=== PATIENT | male | born 1990 | race Caucasian/White ===

== ENCOUNTER 2019-01-15 10:35 | Outpatient (REF) | payer MEDICAID, SELFPAY ==
[2019-01-15 13:26] LABS: ALT 37 U/L (12-78); AST 25 U/L (15-37); Albumin 4.4 g/dL (3.4-5.0); Alkaline Phosphatase 82 U/L (46-116); BUN 12 mg/dL (7-18); Bilirubin, Total 0.3 mg/dL (0.2-1.0); CREATININE 1.02 mg/dL (0.70-1.30); Calcium 9.5 mg/dL (8.5-10.1); Chloride 104 mmol/L (98-107); Cholesterol 234 mg/dL (50-200); Glucose 97 mg/dL (70-100); HDL Cholesterol 41 mg/dL (40-60); LDL CHOLESTEROL 167 mg/dL (<100); Potassium 4.3 mmol/L (3.5-5.1); Sodium 142 mmol/L (136-145); Total Protein 7.7 g/dL (6.4-8.2); Triglyceride 107 mg/dL (30-150)
== END 2019-01-15 10:55 ==
LOC: LBN 10:35
PROVIDERS: PCP Family Medicine; Visit Provider Family Medicine
DX: Z13.220 Encounter for screening for lipoid disorders (principal)
CPT/HCPCS: 80053; 80061; 83721

== ENCOUNTER 2020-01-01 08:14 | Outpatient (CLI) | payer MEDICAID, SELFPAY ==
[2020-01-02 09:34] LABS: HIV-1/2 Ag & Ab Screen Negative (Negative)
[2020-01-02 09:40] LABS: Hepatitis C Ab w Rflx HCV PCR Negative (Negative)
[2020-01-02 10:17] LABS: Syphilis Serology (RPR) Negative (Negative)
[2020-01-02 10:23] LABS: Hepatitis B Surface Ag Negative (Negative)
[2020-01-02 14:55] LABS: Chlamydia Result Negative (Negative); GC Result Negative (Negative)
== END 2020-01-01 08:34 ==
PROVIDERS: PCP Family Medicine; Visit Provider Nurse Practitioner Family
DX: Z11.3 Encounter for screening for infections with a predominantly sexual mode of transmission (principal); Z11.4 Encounter for screening for human immunodeficiency virus [HIV]; Z11.59 Encounter for screening for other viral diseases
CPT/HCPCS: 36415; 86803; 87340; 87389; 87491; 87591; 86592

== ENCOUNTER 2020-01-12 16:21 | Emergency (ER) | payer MEDICAID, SELFPAY ==
[2020-01-12 16:26] VITALS: BP 134/80; PULSE 71; RESP 18; TEMP 37.6; O2SAT 97
[2020-01-12] MEDS: Ibuprofen 600 MG TAB PO (16:45)
--- NOTE | 2020-01-12 17:14 | W.ED.GENAD ---
Discharge Plan Disposition Patient Disposition: HOME Discharge Details Chief Complaint: Laceration Clinical Impression: Traumatic amputation of fingertip Primary Care Provider: John Arndt ED Provider: Arnie Huynh Home Meds and New Rx's Prescriptions: Continued methadone 10 mg/5 mL solution 86 mg PO DAILY RF: 0 Discharge Instructions Instructions: Finger Amputation (ED) Additional Instructions: Please keep dressing intact for the next 3 days. Change dressing daily thereafter. Be sure to use a sterile dressing. Monitor for signs of infection including increased redness, warmth, swelling, discharge. Please take ibuprofen over the counter. Take 600mg by mouth every 6 hours as needed for pain. Return to the ER for any worsening or new concerning symptoms. Referrals: John Arndt DO [Primary Care Provider] - Medical Decision Making 29-year-old male here with amputation of the distal left third digit. Wound is not amenable to primary closure. Wound was anesthetized with topical LMX and irrigated with copious sterile saline. A turnicot was applied for hemostasis. Xeroform gauze was applied and sterile dressing applied. Turnicot removed after 30 minutes. Hemostasis achieved. Patient's last tetanus was 08/29/2000. Tetanus immunization booster was administered. Usual and customary discharge instructions were provided. HPI General Mode of arrival: ambulatory. Date/Time Provider Initiated Documentation: 01/12/20 16:29. Limitations to Documentation: no limitations. Information obtained by: patient. HPI Narrative: 29-year-old male presents with chief complaint of finger injury. Patient notes that he sliced the tip of his left third digit yesterday evening while cutting an onion. A dressing was placed on the finger which controlled bleeding. He took down today and noted bleeding was persisting. Laceration was severe. Unsure of tetanus status. Related Data Home Medications Medication Instructions Recorded Confirmed methadone 10 mg/5 mL oral solution 86 mg PO DAILY ml 01/15/19 01/12/20 Allergies Allergy/AdvReac Type Severity Reaction Status Date / Time clarithromycin [From Biaxin] Allergy Unknown Unverified 01/12/20 16:28 General Stated Complaint: Laceration YAMILETH: 3 Review of Systems Musculoskeletal Musculoskeletal: Denies numbness Integumentary/Breasts Skin/Breast: Reports as per HPI Neurologic Neurologic: Denies numbness [facility] Surgical History Tonsillectomy Family History Father Diabetes Substance abuse Hypertension Mother No problems noted. Maternal Grandmother Stroke Paternal Grandfather Diabetes Arthritis Hypertension Social History Smoking/Tobacco Use Status: Current every day Tobacco Type: cigarettes Quit status: not considering quitting Second Hand Exposure: Yes Alcohol Intake: current Alcohol Intake frequency: a few times a month Drug use: Current Sobriety Substance use type: former substance user Adopted: No Foster care: Yes Household members: family Housing: apartment What type of physical activity do you participate in: walking, bicycling and other Details: KAYAK Frequency: 3-4 times per week Seatbelt use: sometimes Helmet use: Yes Drive 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 Working smoke detector in home: Yes Fire extinguisher in home: Yes Carbon monox detector in home: Yes Firearms in home: No Do you feel safe at home: Yes Do you feel safe in your relationship?: Yes Victim of physical abuse: No Victim of emotional abuse: No Victim of sexual abuse: No Exam Const General: cooperative and healthy appearing Skin Trauma: laceration (distal left 3rd digit amputation of tip of finger, oozing blood) Extrem Left upper extremity: hand Details: neuromotor exam normal, neurosensory exam normal and tendon exam normal Course Vital Signs Vital signs: Vital Signs Temperature 37.6 C H 01/12/20 16:26 Pulse 71 01/12/20 16:26 Respiratory Rate 18 01/12/20 16:26 Blood Pressure 134/80 01/12/20 16:26 Pulse Oximetry 97 01/12/20 16:26 Temperature 37.6 C H 01/12/20 16:26 Pulse 71 01/12/20 16:26 Respiratory Rate 18 01/12/20 16:26 Respiratory Effort Non-Labored 01/12/20 16:31 Blood Pressure 134/80 01/12/20 16:26 Blood Pressure Position Sitting 01/12/20 16:26 Pulse Oximetry 97 01/12/20 16:26 Oxygen Delivery Method Room Air 01/12/20 16:26 Oxygen Flow Rate 0 01/12/20 16:26 Pain Level 6 01/12/20 16:45
[2020-01-12 18:16] VITALS: BP 134/80; PULSE 71; RESP 18; TEMP 37.6; O2SAT 97
== END 2020-01-12 17:37 | disposition home or self-care (01) ==
PROVIDERS: Emergency Provider Student in an Organized Health Care Education/Training Program; PCP Family Medicine
DX: S61.213A Laceration without foreign body of left middle finger without damage to nail, initial encounter (principal); W26.0XXA Contact with knife, initial encounter; Y93.G1 Activity, food preparation and clean up
CPT/HCPCS: 90471; 99284; 99283

== ENCOUNTER 2020-06-05 08:12 | Outpatient (CLI) | payer MEDICAID, SELFPAY ==
[2020-06-07 04:47] LABS: SARS-CoV-2 RNA Undetected (Undetected); SARS-CoV-2 Specimen Source Nasopharynx
== END 2020-06-05 08:32 ==
PROVIDERS: PCP Family Medicine; Visit Provider Family Medicine
DX: J06.9 Acute upper respiratory infection, unspecified (principal)
CPT/HCPCS: U0003

== ENCOUNTER 2021-06-08 11:28 | Emergency (ER) | payer MEDICAID, SELFPAY ==
--- NOTE | 2021-06-08 11:29 | ED.GENADUL_ITS ---
Discharge Plan Disposition Patient Disposition: HOME Condition: Stable Discharge Details Clinical Impression: Fracture of nasal bone, Laceration of eyebrow, right, Contusion of right orbit Primary Care Provider: John Arntd ED Provider: Mattie Garcia Home Meds and New Rx's Prescriptions: New amoxicillin-pot clavulanate [Augmentin] 875-125 mg tablet 1 tab PO BID 10 Days Qty: 20 RF: 0 Continued methadone 10 mg/5 mL solution 40 mg PO DAILY RF: 0 Discharge Instructions Instructions: Head Injury (ED), Contusion in Adults (ED), Skin Adhesive Care (ED), Facial Laceration (ED) Additional Instructions: Keep wound clean and dry. Do not soak the wounds or cover wound with a dressing. Let the Dermabond glue fall off naturally. Alternate tylenol and motrin as needed and directed for pain. A prescription for an antibiotic was sent electronically to your pharmacy. Start this antibiotic today and take as directed until finished. You are being given this antibiotic for your nasal bone fractures to prevent a sinus infection. Call [facility] and the ear nose and throat doctor today to schedule a follow-up appointment for reevaluation in the next week. Return immediately to the emergency department if you develop any worsening or new concerning symptoms. Referrals: [facility], [facility] [Outside] Florin Montelongo MD [ [facility] STAFF PHYSICIAN] - Discharge Data Discharge Date/Time-TO BE ENTERED AT DEPARTURE: 06/08/21 13:47 Discharge Physician: Mattie Garcia Medical Decision Making 31-year-old male presents with right eye injury after slipping and falling and hitting his right eye on a metal handle of a dresser yesterday. Admit to revision but denies any LOC or vomiting. OD 20/30, 0S 20/20, OU 20/20. He has a 1 cm x 2 mm crusted erosion to the right medial eyebrow are consistent with closed laceration. There is right orbital tenderness and ecchymosis in the infraorbital region. EOMI intact. PERRLA. No evidence of entrapment. No midline cervical spinal tenderness. Neurovascularly intact. Will place let overlying the wound and remove the crusted erosion to close the wound with Dermabond. Will refer for CT head and facial bones. CT facial bones notes nondisplaced nasal bone fractures but no orbital fracture. Remainder of CT imaging unremarkable with no evidence of entrapment or intracranial injury. Patient's right eyebrow laceration irrigated and erosion removed and edges closely approximated and closed with Dermabond. Will place patient on Augmentin for nasal bone fractures and place on care management list for follow-up with ENT and [facility]. Usual and customary return precautions given prior to discharge. Imaging Data Radiologic Study: Radiologist's impression: CT HEAD FACIAL WO CLINICAL HISTORY: hit R side of face/R orbit on metal handle. TECHNIQUE: Imaging Protocol: Axial computed tomography images with coronal and sagittal reformatted images were created and reviewed COMPARISON: No exams were available for comparison FINDINGS: Ventricles and Extra axial spaces: Normal in size and morphology for the patient's age. Hemorrhage: None. Cerebral parenchyma: Normal. Midline shift: None. Brainstem/Cerebellum: Normal. Calvarium: Normal. Visualized Paranasal sinuses/Mastoids: Clear. Soft tissue swelling over frontal reason and nose. Nondisplaced nasal fractures. No additional facial fractures. Globes intact. No orbital fracture. Poor dentition. Multiple periapical lucencies. IMPRESSION: Normal CT of the head. Nondisplaced nasal fractures. Surrounding soft tissue swelling. HPI General Mode of arrival: ambulatory . Date/Time Provider Initiated Documentation: 06/08/21 11:29 . Limitations to Documentation: no limitations . Information obtained by: patient . HPI Narrative: Patient is a 31-year-old male presents with right eye injury after slip and fall hitting his right eye on a metal tile setter handle yesterday at 3pm. Patient states he slipped on water striking the right orbital area of his eye on the handle. He sustained a laceration to his right medial eyebrow. He states it bled for several hours but he was able to stop the bleeding and covered it with a Band-Aid. Patient states today he is complaining of fuzzy vision and flashing light in her right eye. Patient states his tetanus is up-to-date. Patient admits to mild 3/10 facial pain and headache. He denies neck pain or extremity weakness. Related Data Home Medications Medication Instructions Recorded Confirmed methadone 10 mg/5 mL oral solution 40 mg PO DAILY ml 01/12/21 06/08/21 amoxicillin-pot clavulanate 1 tab PO BID 10 Days #20 tab 06/08/21 [Augmentin] Previous Rx's Medication Instructions Recorded amoxicillin-pot clavulanate 1 tab PO BID 10 Days #20 tab 06/08/21 [Augmentin] Allergies Allergy/AdvReac Type Severity Reaction Status Date / Time clarithromycin [From Biaxin] Allergy Unknown Unverified 06/08/21 11:34 General YAMILETH: 3 Review of Systems All systems reviewed & are unremarkable except as noted in HPI and below Constitutional Constitutional: Reports as per HPI, Denies chills and Denies fever(s) Eyes Eyes: Reports blurry vision and Reports eye pain (R eye area) ENT Ears, Nose, Mouth, and Throat: Denies dizziness, Denies sore throat and Denies throat swelling Cardiovascular Cardiovascular: Denies chest pain and Denies dyspnea Respiratory Respiratory: Denies cough and Denies dyspnea Gastrointestinal Gastrointestinal: Denies abdominal pain, Denies diarrhea and Denies vomiting Genitourinary Genitourinary: Denies hematuria and Denies dysuria Musculoskeletal Musculoskeletal: Denies back pain and Denies numbness Integumentary/Breasts Skin/Breast: Denies lesions and Denies rash Neurologic Neurologic: Denies dizziness, Denies localized weakness and Denies numbness Allergic/Immunologic Allergic/Immunologic: Denies throat swelling [facility] Medical History (Updated 06/08/21 @ 13:27 by Mattie Garcia DO) Depression Opiate dependence BAART since 07/22/15 Tobacco dependence Traumatic amputation of fingertip Surgical History Tonsillectomy Family History Father Diabetes Substance abuse Hypertension Mother No problems noted. Maternal Grandmother Stroke Paternal Grandfather Diabetes Arthritis Hypertension Social History Smoking/Tobacco Use Status: Current every day Tobacco Type: cigarettes Quit status: not considering quitting Second Hand Exposure: Yes Smoking risk assessment performed?: Yes Alcohol Intake: current Alcohol Intake frequency: a few times a month Drug use: Current Sobriety Substance use type: former substance user Adopted: No Foster care: Yes Household members: family Housing: apartment What type of physical activity do you participate in: walking, bicycling and other Details: KAYAK Frequency: 3-4 times per week Seatbelt use: sometimes Helmet use: Yes Drive intox 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 Working smoke detector in home: Yes Fire extinguisher in home: Yes Carbon monox detector in home: Yes Firearms in home: No Do you feel safe at home: Yes Do you feel safe in your relationship?: Yes Victim of physical abuse: No Victim of emotional abuse: No Victim of sexual abuse: No Exam Const General: cooperative, healthy appearing and no acute distress HENHI Head: normal to inspection Mouth: oral mucosae normal Eyes General: appearance normal, both eyes and all related structures Periorbital: periorbital findings abnormal right periorbital swelling, perio rbital tenderness and periorbital ecchymosis; no erythema and no crepitus Eyelids: eyelids normal Conjunctivae: conjunctivae normal Sclera: sclerae normal Cornea: corneas normal Pupils: PERRL EOM: EOM intact bilaterally Eyes/upper lids images: 1. 1cm x 2mm crusted erosion c/w dried blood overlying laceration. No active bleeding. 2. Ecchymoses, no hematoma. Neck Neck: normal visual inspection Resp Effort & Inspection: normal respiratory effort and able to speak in complete sentences Cardio Rate: regular rate Back/Spine/Pelvis Cervical Spine: No cervical spinal tenderness Skin General skin exam: no rashes or lesions noted Neuro General: patient alert, patient awake and patient oriented x3 Cranial Nerves: CN's II-XI intact bilaterally Motor: muscle tone normal throughout and strength 5/5 throughout Extrem General: normal to inspection and full ROM Psych Appearance: grossly normal Affect: normal affect Procedures Laceration Laceration 1: Site: face Side (If applicable): right Size (cm): 1 Description: linear Depth: simple, single layer Local Anesthetic: other anesthetic (topical anesthetic) Pre-repair: wound explored Skin layer closed with: other (dermabond)
[2021-06-08 11:32] VITALS: BP 136/91; PULSE 70; RESP 17; TEMP 36.7; O2SAT 99
--- NOTE | 2021-06-08 11:45 | DI.CT_ITS ---
Exam(s) CT HEAD FACIAL WO EXAM: CT HEAD FACIAL WO CLINICAL HISTORY: hit R side of face/R orbit on metal handle. TECHNIQUE: Imaging Protocol: Axial computed tomography images with coronal and sagittal reformatted images were created and reviewed COMPARISON: No exams were available for comparison FINDINGS: Ventricles and Extra axial spaces: Normal in size and morphology for the patient's age. Hemorrhage: None. Cerebral parenchyma: Normal. Midline shift: None. Brainstem/Cerebellum: Normal. Calvarium: Normal. Visualized Paranasal sinuses/Mastoids: Clear. Soft tissue swelling over frontal reason and nose. Nondisplaced nasal fractures. No additional faci al fractures. Globes intact. No orbital fracture. Poor dentition. Multiple periapical lucencies. IMPRESSION: Normal CT of the head. Nondisplaced nasal fractures. Surrounding soft tissue swelling. RADIATION DOSE DELIVERED: 1,697.92mGy.cm Total DLP DATA REPOSITORY: All CT scans at this facility are submitted to the National Radiology Data Registry (NRDR) Dose Index Registry (DIR) with the [employer] (ACR). RADIATION OPTIMIZATION: All CT scans at this facility use at least one of these dose optimization te chniques: automated exposure control; mA and/or kV adjustment per patient size (includes targeted exa ms where dose is matched to clinical indication); or iterative reconstruction.
[2021-06-08] MEDS: Lidocaine/Epinephri/Tetracaine Topical Gel 3 ML TP (12:01)
--- NOTE | 2021-06-08 17:06 | NUR.NOTE ---
referral to [facility]
--- NOTE | 2021-06-08 17:07 | NUR.NOTE ---
referral to[facility] ENT:
== END 2021-06-08 13:47 | disposition home or self-care (01) ==
PROVIDERS: Emergency Provider Physician Assistant; PCP Family Medicine
DX: S02.2XXA Fracture of nasal bones, initial encounter for closed fracture (principal); S01.111A Laceration without foreign body of right eyelid and periocular area, initial encounter; S05.11XA Contusion of eyeball and orbital tissues, right eye, initial encounter; W01.190A Fall on same level from slipping, tripping and stumbling with subsequent striking against furniture, initial encounter
CPT/HCPCS: 12011; 99284; 70450; 70486

== ENCOUNTER 2021-08-24 08:31 | Outpatient (REF) | payer MEDICAID, SELFPAY | END 2021-08-24 08:32 | disposition home or self-care (01) | LOC: RT 08:31 | PROVIDERS: PCP Family Medicine; Visit Provider Family Medicine | DX: Z79.899 Other long term (current) drug therapy (principal) | CPT/HCPCS: 93005; 93010 ==

== ENCOUNTER 2022-02-11 10:25 | Outpatient (REF) | payer MEDICAID, SELFPAY ==
[2022-02-13 13:16] LABS: Chlamydia Result Negative (Negative); GC Result Negative (Negative)
== END 2022-02-11 10:26 | disposition home or self-care (01) ==
LOC: LBN 10:25
PROVIDERS: PCP Family Medicine; Visit Provider Family Medicine
DX: Z11.3 Encounter for screening for infections with a predominantly sexual mode of transmission (principal)
CPT/HCPCS: 87491; 87591

== ENCOUNTER 2022-02-14 02:58 | Outpatient (CLI) | payer MEDICAID, SELFPAY ==
[2022-02-15 10:36] LABS: HIV-1/2 Ag & Ab Screen Negative (Negative)
[2022-02-15 10:43] LABS: Syphilis Serology (RPR) Negative (Negative)
[2022-02-15 12:15] LABS: HBs Antibody, Qual Positive (See Note); HBs Antibody, Quant 892.6 mIU/mL (See Note); Hepatitis B Core Antibody Negative (Negative); Hepatitis B surface Ag Negative (Negative); Hepatitis C Ab w Rflx HCV PCR Reactive (Negative)
[2022-02-16 14:54] LABS: HCV RNA Qualitative Undetected (Undetected)
== END 2022-02-14 02:59 | disposition home or self-care (01) ==
LOC: LBO 02:59
PROVIDERS: PCP Family Medicine; Referring Provider Family Medicine
DX: Z11.3 Encounter for screening for infections with a predominantly sexual mode of transmission (principal); Z11.4 Encounter for screening for human immunodeficiency virus [HIV]; Z11.59 Encounter for screening for other viral diseases
CPT/HCPCS: 36415; 86704; 86706; 86803; 87340; 87389; 87522; 86592

== ENCOUNTER 2023-01-11 07:31 | Emergency (ER) | payer MEDICAID, SELFPAY ==
[2023-01-11 07:32] VITALS: BP 141/95; PULSE 68; RESP 16; TEMP 36.6; O2SAT 99
--- NOTE | 2023-01-11 07:42 | W.ED.GENAD ---
Discharge Plan Disposition Patient Disposition: Home Condition: Stable Discharge Details Clinical Impression: Pain, dental Primary Care Provider: John Arndt ED Provider: Rubén Preciado Home Meds and New Rx's Prescriptions: New amoxicillin-pot clavulanate 875-125 mg tablet 1 tab PO BID Qty: 14 0RF No Action methadone 10 mg/5 mL solution 140 mg PO DAILY Rx Instructions: 01/12/21 Currently receives 105 mg of Liquid Methadone.BAART cgc 07/16/21 Dose changed to 60 mgs liquid daily. mk Discharge Instructions Instructions: Dental Abscess (ED) Additional Instructions: you can take ibuprofen and tylenol, follow dosing instrucions on packaging follow up as soon as possible with your dentist if you feel more ill, have severe worsening pain or difficulty swallowing liquids return to the emergency department Medical Decision Making 32 yo male who is on methadone comes in with cc of 2 days of left upper tooth pain. He denies fevers, chills, dyspnea, difficulty swallowing. HE arrives stable speaking clearly in no distress. HE appears well systemically. He localizes the pain to the left upper incisor which is eroded and has mild swelling of the gum above it. No visible abscess, no significant facial swelling, normal posterior pharynx, midline uvula, no submandibular swelling, no pain over the hyoid, no restricted neck movements. Swallowing normally without difficulty. Suspect dental abscess, no drainable abscess on bedside exam. No finings to suggest ludwigs or more serious pathology such as retropharyngeal abscess. Will initiate augmentin and have him f/u with his dentist. He requested to have several doses for at home due to lack of funds and states he will be able to get a prescription tomorrow so was given 2 tabs to go as well of augmentin. Return precautions given Differential Diagnosis Differential Diagnosis: pulpitis, caries, dental abscess HPI General Mode of arrival: ambulatory. Date/Time Provider Initiated Documentation: 01/11/23 07:32. Limitations to Documentation: no limitations. Information obtained by: patient. History of Present Illness 32 year old M presents to the emergency department with the chief complaint of dental pain, described as moderate, Quality is described as aching, Patient started experiencing this day(s) (2) and it has been constant. No relieving factors improve symptom(s), No exacerbating factors reported . Patient notes no other symptoms.; denies fever/chills and shortness of breath. Patient did receive the following treatments prior to arrival, none Related Data Home Medications Medication Instructions Recorded Confirmed methadone 10 mg/5 mL oral solution 140 mg PO DAILY 02/11/22 01/11/23 amoxicillin 875 mg-potassium 1 tab PO BID #14 tabs 01/11/23 clavulanate 125 mg tablet Previous Rx's Medication Instructions Recorded amoxicillin 875 mg-potassium 1 tab PO BID #14 tabs 01/11/23 clavulanate 125 mg tablet Allergies Allergy/AdvReac Type Severity Reaction Status Date / Time clarithromycin [From Biaxin] Allergy Severe Other (See Verified 01/11/23 07:37 Comment) General Stated Complaint: DentalOral YAMILETH: 4 Review of Systems All systems reviewed & are unremarkable except as noted in HPI and below Constitutional Constitutional: Denies chills, Denies fever(s) and Denies weakness ENT Ears, Nose, Mouth, and Throat: Denies change in voice Cardiovascular Cardiovascular: Denies chest pain and Denies dyspnea Respiratory Respiratory: Denies cough and Denies dyspnea Gastrointestinal Gastrointestinal: Denies abdominal pain, Denies nausea and Denies vomiting Integumentary/Breasts Skin/Breast: Denies rash Neurologic Neurologic: Denies weakness PFSH All Active Problems (Updated 01/11/23 @ 07:42 by Rubén Preciado MD) Pain, dental (Acute) Hepatitis C antibody positive in blood (Acute) Exposure to trichomonas (Acute) PTSD (post-traumatic stress disorder) (Acute) Fracture of nasal bone (Acute) Laceration of eyebrow, right (Acute) Contusion of right orbit (Acute) Tobacco dependence (Chronic) Opiate dependence (Chronic) BAART since 07/22/15 Depression (Chronic) Medical History (Updated 01/11/23 @ 07:42 by Rubén Preciado MD) Traumatic amputation of fingertip Surgical History Tonsillectomy Family History Father Diabetes Substance abuse Hypertension Mother No problems noted. Maternal Grandmother Stroke Paternal Grandfather Diabetes Arthritis Hypertension Social History Smoking/Tobacco Use Status: Current every day Tobacco Type: cigarettes Quit status: not considering quitting Second Hand Exposure: Yes Smoking risk assessment performed?: Yes Alcohol Intake: current Alcohol Intake frequency: a few times a month Drug use: Current Sobriety Substance use type: former substance user Adopted: No Foster care: Yes Household members: family Housing: apartment What type of physical activity do you participate in: walking, bicycling and other Details: KAYAK Frequency: 3-4 times per week Seatbelt use: sometimes Helmet use: Yes Drive intox 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 Working smoke detector in home: Yes Fire extinguisher in home: Yes Carbon monox detector in home: Yes Firearms in home: No Do you feel safe at home: Yes Do you feel safe in your relationship?: Yes Victim of physical abuse: No Victim of emotional abuse: No Victim of sexual abuse: No Exam Const General: no acute distress Orientation: alert HENMT Head: normal to inspection and no palpable skull fracture Ears: external ears normal General nose exam: external nose normal Mouth: moist mucous membranes Eyes General: appearance normal, both eyes and all related structures Neck Neck: normal visual inspection Resp Effort & Inspection: normal respiratory effort and able to speak in complete sentences Cardio Rate: regular rate Skin General skin exam: no rashes or lesions noted Neuro General: patient alert and patient oriented x3 Extrem General: normal to inspection Psych Mental Status: mental status grossly normal Course Vital Signs Vital signs: Vital Signs Temperature 36.6 C 01/11/23 07:32 Pulse 68 01/11/23 07:32 Respiratory Rate 16 01/11/23 07:32 Blood Pressure 141/95 H 01/11/23 07:32 Pulse Oximetry 99 01/11/23 07:32 Temperature 36.6 C 01/11/23 07:32 Temperature Source Tympanic 01/11/23 07:32 Pulse 68 01/11/23 07:32 Respiratory Rate 16 01/11/23 07:32 Respiratory Effort Normal 01/11/23 07:36 Blood Pressure 141/95 H 01/11/23 07:32 Blood Pressure Position Sitting 01/11/23 07:32 Pulse Oximetry 99 01/11/23 07:32 Oxygen Delivery Method Room Air 01/11/23 07:32 Oxygen Flow Rate 0 01/11/23 07:32 Pain Level 7 01/11/23 07:36 PAWSS Have you Been Recently Intoxicated or Drunk Within the Last 30 days?: No Have you Ever Experienced Previous Episodes of Alcohol Withdrawal?: No Have you ever Experienced Withdrawal Seizures?: No Have you ever Experienced Delirium Tremens(DT)s?: No Have you ever undergone Alcohol Rehabilitation Treatment (i.e, inpt ot outpatient treatment programs)?: No Have you ever Experienced Blackouts?: No Have you ever Combined Alcohol with other Downers within the last 90 days?: No Have you ever Combined Alcohol with any other Substance of Abuse during the last 90 days?: No Result: 0
[2023-01-11] MEDS: Amoxicillin 875/Clav. 125 TAB PO (07:47)
[2023-01-11] MEDS: Amox. 875/Clav. 125, 2 TABS/BTL 1 TAB PO (07:47)
== END 2023-01-11 07:47 | disposition home or self-care (01) ==
PROVIDERS: Emergency Provider Emergency Medicine; PCP Family Medicine
DX: K08.89 Other specified disorders of teeth and supporting structures (principal)
CPT/HCPCS: 99283

== ENCOUNTER 2024-03-18 07:28 | Emergency (ER) | payer MEDICAID, SELFPAY ==
[2024-03-18 07:30] VITALS: BP 124/89; PULSE 87; RESP 14; TEMP 36.9; O2SAT 98
[2024-03-18 07:34] VITALS: BP 124/89; PULSE 87; RESP 14; TEMP 36.9; O2SAT 98
--- NOTE | 2024-03-18 07:42 | W.ED.GENAD ---
Discharge Plan Disposition Patient Disposition: Home Condition: Stable Discharge Details Clinical Impression: Pain, dental Primary Care Provider: John Arndt ED Provider: Rubén Preciado Home Meds and New Rx's Prescriptions: New amoxicillin-pot clavulanate 875-125 mg tablet 1 tab PO BID Qty: 14 0RF Continued methadone 10 mg/5 mL solution 150 mg PO DAILY Rx Instructions: 01/12/21 Currently receives 105 mg of Liquid Methadone.BAART cgc 07/16/21 Dose changed to 60 mgs liquid daily. mk acetaminophen [Tylenol] 325 mg capsule 500 mg PO PRN PRN Discharge Instructions Additional Instructions: Follow-up with your dentist within 1 to 2 weeks You can take 1000 mg of acetaminophen and 600 mg of ibuprofen every 6 hours as needed If you feel more ill, have high fevers or inability to swallow liquids return to the emergency department for reevaluation HPI General Mode of arrival: ambulatory. Date/Time Provider Initiated Documentation: 03/18/24 07:28. Limitations to Documentation: no limitations. Information obtained by: patient. History of Present Illness 34 year old M presents to the emergency department with the chief complaint of dental pain, described as moderate, Patient started experiencing this day(s) (1) and it has been constant. No relieving factors improve symptom(s), No exacerbating factors reported . Patient notes no other symptoms.. Patient did receive the following treatments prior to arrival, none Related Data Home Medications Medication Instructions Recorded Confirmed methadone 10 mg/5 mL oral solution 150 mg PO DAILY 02/11/22 03/18/24 acetaminophen 325 mg capsule 500 mg PO PRN PRN 03/18/24 03/18/24 (Tylenol) amoxicillin 875 mg-potassium 1 tab PO BID #14 tabs 03/18/24 clavulanate 125 mg tablet Previous Rx's Medication Instructions Recorded amoxicillin 875 mg-potassium 1 tab PO BID #14 tabs 03/18/24 clavulanate 125 mg tablet Allergies Allergy/AdvReac Type Severity Reaction Status Date / Time clarithromycin [From Biaxin] Allergy Severe Other (See Verified 03/18/24 07:35 Comment) General Stated Complaint: DentalOral YAMILETH: 4 Review of Systems All systems reviewed & are unremarkable except as noted in HPI and below Constitutional Constitutional: Denies chills, Denies fever(s) and Denies weakness ENT Ears, Nose, Mouth, and Throat: Denies change in voice Cardiovascular Cardiovascular: Denies chest pain and Denies dyspnea Respiratory Respiratory: Denies cough and Denies dyspnea Gastrointestinal Gastrointestinal: Denies abdominal pain, Denies nausea and Denies vomiting Musculoskeletal Musculoskeletal: Denies joint swelling Neurologic Neurologic: Denies weakness Exam Const General: no acute distress Orientation: alert [facility] Head: normal to inspection Ears: external ears normal General nose exam: external nose normal Mouth: moist mucous membranes Eyes General: appearance normal, both eyes and all related structures Neck Neck: normal visual inspection Resp Effort & Inspection: normal respiratory effort and able to speak in complete sentences Cardio Rate: regular rate Skin General skin exam: no rashes or lesions noted Neuro General: patient alert and patient oriented x3 Extrem General: normal to inspection Psych Mental Status: mental status grossly normal Course Vital Signs Vital signs: Vital Signs Temperature 36.9 C 03/18/24 07:30 Pulse 87 03/18/24 07:30 Respiratory Rate 14 03/18/24 07:30 Blood Pressure 124/89 03/18/24 07:30 Pulse Oximetry 98 03/18/24 07:30 Temperature 36.9 C 03/18/24 07:34 Pulse 87 03/18/24 07:34 Respiratory Rate 14 03/18/24 07:34 Respiratory Effort Normal, Non-Labored 03/18/24 07:34 Blood Pressure 124/89 03/18/24 07:34 Blood Pressure Position Sitting 03/18/24 07:34 Pulse Oximetry 98 03/18/24 07:34 Oxygen Delivery Method Room Air 03/18/24 07:34 Oxygen Flow Rate 0 03/18/24 07:34 Pain Level 4 03/18/24 07:34 Medical Decision Making 34-year-old male with a history of PTSD, prior opiate dependence on methadone, comes in with 1 day of right lower dental pain and swelling. Denies any fevers, changes in voice. He is alert and oriented on arrival and appears well in no distress, breathing and swallowing normally. He has numerous eroded teeth, the tooth that is bothering him is the right lower anterior molar that is severely eroded and has mild swelling of the gum. No submandibular swelling, normal posterior pharynx with midline uvula, no restricted neck movements and no pain over the hyoid. No visible abscess that I can drain on exam. Suspect dental infection, will start him on Augmentin and have him follow-up with his dentist. Return precautions given. Do not feel any labs or imaging indicated as exam is not consistent with entities such as [place]igs Differential Diagnosis Differential Diagnosis: Pulpitis, dental abscess Quality:SDOH Health Related Social Needs: No Data to Display PFSH All Active Problems (Updated 03/18/24 @ 07:43 by Rubén Preciado MD) Pain, dental (Acute) Hepatitis C antibody positive in blood (Acute) Exposure to trichomonas (Acute) PTSD (post-traumatic stress disorder) (Acute) Fracture of nasal bone (Acute) Laceration of eyebrow, right (Acute) Contusion of right orbit (Acute) Tobacco dependence (Chronic) Opiate dependence (Chronic) BAART since 07/22/15 Depression (Chronic) Medical History (Updated 03/18/24 @ 07:43 by Rubén Preciado MD) Traumatic amputation of fingertip Surgical History Tonsillectomy Family History Father Diabetes Substance abuse Hypertension Mother No problems noted. Maternal Grandmother Stroke Paternal Grandfather Diabetes Arthritis Hypertension Social History Smoking/Tobacco Use Status: Current every day Tobacco Type: cigarettes Quit status: not considering quitting Second Hand Exposure: Yes Smoking risk assessment performed?: Yes Alcohol Intake: current Alcohol Intake frequency: a few times a month Drug use: Current Sobriety Substance use type: former substance user Adopted: No Foster care: Yes Household members: family Housing: apartment What type of physical activity do you participate in: walking, bicycling and other Details: KAYAK Frequency: 3-4 times per week Seatbelt use: sometimes Helmet use: Yes Drive intox or ride w/intox feeder driver: No Working smoke detector in home: Yes Fire extinguisher in home: Yes Carbon monox detector in home: Yes Firearms in home: No Do you feel safe at home: Yes Do you feel safe in your relationship?: Yes Victim of physical abuse: No Victim of emotional abuse: No Victim of sexual abuse: No
[2024-03-18 07:50] VITALS: BP 124/89; PULSE 87; RESP 14; TEMP 36.9; O2SAT 98
== END 2024-03-18 07:51 | disposition home or self-care (01) ==
LOC: ER 09:48
PROVIDERS: Emergency Provider Emergency Medicine; PCP Family Medicine
DX: R68.84 Jaw pain (principal); K08.89 Other specified disorders of teeth and supporting structures
CPT/HCPCS: 99283

== ENCOUNTER 2024-11-03 16:05 | Emergency (ER) | payer MEDICAID, SELFPAY ==
[2024-11-03 16:06] VITALS: BP 139/82; PULSE 80; RESP 16; TEMP 36.9; O2SAT 97
--- NOTE | 2024-11-03 16:09 | ED.GENADUL_ITS ---
Discharge Plan Disposition Patient Disposition: Home Discharge Details Clinical Impression: Cellulitis and abscess of right lower extremity Primary Care Provider: John Arndt ED Provider: Reina Rosales Home Meds and New Rx's Prescriptions: New clindamycin HCl 150 mg capsule 450 mg PO TID Qty: 45 0RF Continued methadone 10 mg/5 mL solution 150 mg PO DAILY Rx Instructions: 01/12/21 Currently receives 105 mg of Liquid Methadone.BAART cgc 07/16/21 Dose changed to 60 mgs liquid daily. mk No Action acetaminophen [Tylenol] 325 mg capsule 500 mg PO PRN PRN Discharge Instructions Instructions: Cellulitis (skin infection) in adults - Discharge instructions Additional Instructions: Please take the full course of antibiotics as prescribed. Take with a probiotic such as Activia yogurt. I recommend doing soaks in warm water of your hand and leg for 15 to 20 minutes at a time 3-4 times a day. Change dressing each time you do a soap, applying a thin layer of bacitracin and covering with nonstick bandage. Elevate your leg above heart level to help with swelling and discomfort. You may use Tylenol and ibuprofen as needed. Return to emergency care if you develop new fever/chills, general malaise, increased swelling/redness/pain, or if you are very worried and need to be rechecked again immediately Stand Alone Forms: Work Release Referrals: John Arndt DO [Primary Care Provider] - [facility] General Date/Time Provider Initiated Documentation: 11/03/24 16:07 . [facility] Narrative: Ant is a 34 year old male who presents to the emergency department today for evaluation of infections due to recent tattoos. Approximately 2 weeks ago Ant tattooed himself, says he has done multiple tattoos in the past and used clean needles, but has never had this problem. He has open sores on his left thumb and his right lower leg, says that he has been trying to keep the wounds covered, but thinks irritation from his pants and covering Shawn wrap caused the skin to be irritated. He also developed a ingrown hair on his right carlson in the area of the tattoos as well. Denies systemic symptoms such as fever/chills, general malaise, change in p.o. intake, change in bowel or bladder function, abdominal symptoms.. Past medical history is significant for IVDU (last used one year ago, currently on methadone with ANNETTA) and hep C (treated). Denies recent antibiotic use or history or immunocompromise. Physical exam remarkable for area approximately 4 cm x 4 cm of redness, induration, with a central ulceration that is draining purulent fluid to the right anterior carlson. He also has areas of shallow excoriations to the tattoos on the right anterior carlson and left dorsum of the thumb. Mild erythema surrounding. Distal pulses intact, brisk cap refill. No swelling distal to the abscess or cellulitis. Overall Ant is well-appearing, in no acute distress. History and presentation consistent with cellulitis with small abscess. Abscess was able to be visualized using ultrasound performed with Dr. Childs at bedside. No red flags concerning for systemic infection or deep space infection requiring blood work or emergent diagnostic imaging. While in the emergency department, Ant received first dose of clindamycin to cover for strep and staph/MRSA. he is followed by [facility] internal medicine, recommend follow-up if he has any questions or concerns. SOHA Covarrubias at bedside to perform wound care and dress wounds. Reviewed discharge instructions with patient, including symptomatic management, including wound care, antibiotic use, and red flags indicating need for return to emergency care Related Data Home Medications ?Medication ?Instructions ?Recorded ?Confirmed methadone 10 mg/5 mL oral solution 150 mg PO DAILY 02/11/22 11/03/24 acetaminophen 325 mg capsule 500 mg PO PRN PRN 03/18/24 11/03/24 (Tylenol) clindamycin HCl 150 mg capsule 450 mg (3 x 150 mg) PO TID #45 caps 11/03/24 Previous Rx's ?Medication ?Instructions ?Recorded clindamycin HCl 150 mg capsule 450 mg (3 x 150 mg) PO TID #45 caps 11/03/24 Allergies Allergy/AdvReac Type Severity Reaction Status Date / Time clarithromycin (From Biaxin) Allergy Severe Other (See Verified 11/03/24 16:11 Comment) General YAMILETH: 4 Review of Systems Narrative: see HPI Exam Const General: cooperative, healthy appearing, comfortable, no acute distress and well developed Nutritional Appearance: average body habitus and well nourished Orientation: alert and oriented x3 Resp Effort & Inspection: normal respiratory effort and able to speak in complete sentences Skin General skin exam: excoriation (along tattoos on RLE and L dorsum of thumb) Lesions: lesion noted right anterior lower leg size (approx 4 cm diameter abscess with central opening draining purulent fluid) and tender Full body images: 2 1. area of cellulitis on lower leg 2. cellulitis at base of thumb Neuro General: patient alert, patient oriented x3, gait normal, tone normal and moves all extremities Extrem General: full ROM, capillary refill normal, no pedal edema and normal gait Other: distal pulses intact to RLE Medical Decision Making Quality:SDOH Health Related Social Needs: 2 Health related social needs housing instability, house d, with risk of homelessness (Z59.811), problems with daily activities (Z73.9), education (Z55.6) PFSH All Active Problems (Updated 11/03/24 @ 16:52 by Reina Cordero) Cellulitis and abscess of right lower extremity (Acute) Hepatitis C antibody positive in blood (Acute) Exposure to trichomonas (Acute) PTSD (post-traumatic stress disorder) (Acute) Fracture of nasal bone (Acute) Laceration of eyebrow, right (Acute) Contusion of right orbit (Acute) Tobacco dependence (Chronic) Opiate dependence (Chronic) BAART since 07/22/15 Depression (Chronic) Medical History (Updated 11/03/24 @ 16:52 by Reina Cordero) Traumatic amputation of fingertip Surgical History Tonsillectomy Family History Father Diabetes Substance abuse Hypertension Mother No problems noted. Maternal Grandmother Stroke Paternal Grandfather Diabetes Arthritis Hypertension Social History Smoking/Tobacco Use Status: Current every day Tobacco Type: cigarettes Quit status: not considering quitting Second Hand Exposure: Yes Smoking risk assessment performed?: Yes Alcohol Intake: current Alcohol Intake frequency: a few times a month Drug use: Current Sobriety Substance use type: former substance user Adopted: No Foster care: Yes Household members: family Housing: apartment What type of physical activity do you participate in: walking, bicycling and other Details: KAYAK Frequency: 3-4 times per week Seatbelt use: sometimes Helmet use: Yes Drive intox or ride w/intox special needs bus driver: No Working smoke detector in home: Yes Fire extinguisher in home: Yes Carbon monox detector in home: Yes Firearms in home: No Do you feel safe at home: Yes Do you feel safe in your relationship?: Yes Victim of physical abuse: No Victim of emotional abuse: No Victim of sexual abuse: No
[2024-11-03 16:15] VITALS: BP 139/82; PULSE 80; RESP 16; TEMP 36.9; O2SAT 97
--- NOTE | 2024-11-03 16:32 | ED.PROG_ITS ---
Date of service: 11/03/24 Time of Service: 16:33 Medical Decision Making I saw this patient in conjunction with his advanced practice provider. Please see her note for complete details. In brief this is a 34-year-old male with remote history of IV drug use greater than 1 year ago arriving to the emergency department in the setting of right lower extremity small abscess from which he was able to express pus last night. He had a small anechoic fluid collection. He tolerated bedside expression of small volume purulent drainage. He was offered incision and drainage but he declined. He will be discharged on antibiotics at [facility]. His vitals are not consistent with sepsis. Quality:[facility] Health Related Social Needs: Health related social needs housing instability, house d, with risk of homelessness (Z59.811), problems with daily activities (Z73.9), education (Z55.6) Procedures Abscess I/D Site: Lower Extremity Side (if applicable): Right Technique: Other (Manually expressed given spontaneous drainage) Amount of fluid expressed (mL): 2 Discharge Plan Discharge Details Chief Complaint: Cellulitis Primary Care Provider: John Arndt ED Provider: Reina Rosales Home Meds and New Rx's Prescriptions: No Action methadone 10 mg/5 mL solution 150 mg PO DAILY Rx Instructions: 01/12/21 Currently receives 105 mg of Liquid Methadone.BAART cgc 07/16/21 Dose changed to 60 mgs liquid daily. mk acetaminophen [Tylenol] 325 mg capsule 500 mg PO PRN PRN POCUS Exam (ED) Limited Soft Tissue Exam DATE OF EXAM: 11/03/24 TIME OF EXAM: 16:44 PROVIDER THAT PERFORMED THE STUDY: Rick Childs IS THIS A REPEAT EXAM DURING THIS ENCOUNTER: No LOCATION OF EXAM: Lower extremity/right REASON FOR EXAM: Pain Exam Complete DIFFERENTIAL DIAGNOSES: Small anechoic fluid collection
[2024-11-03] MEDS: Clindamycin 150 MG CAP 450 MG PO (16:56)
[2024-11-03] MEDS: Bacitracin 30 GM TUBE (16:58)
[2024-11-03] MEDS: Clindamycin 150 MG CAP, 12 CAPS/BTL 450 MG PO (17:00)
== END 2024-11-03 17:09 | disposition home or self-care (01) ==
PROVIDERS: Emergency Provider Nurse Practitioner Family; PCP Family Medicine
DX: L03.115 Cellulitis of right lower limb (principal); Z59.811 Housing instability, housed, with risk of homelessness; Z73.9 Problem related to life management difficulty, unspecified; Z55.6 Problems related to health literacy; L02.415 Cutaneous abscess of right lower limb
CPT/HCPCS: 00123; 76882; 99284

== ENCOUNTER 2025-05-27 11:20 | Emergency (ER) | payer MEDICAID, SELFPAY ==
[2025-05-27 11:21] VITALS: BP 166/62; PULSE 60; RESP 18; TEMP 36.8
--- NOTE | 2025-05-27 11:34 | W.ED.GENAD ---
Discharge Plan Disposition Patient Disposition: Home Condition: Stable Discharge Details Clinical Impression: Tick bite Primary Care Provider: John Arndt ED Provider: Kenny Bartlett Home Meds and New Rx's Prescriptions: No Action methadone 10 mg/5 mL solution 150 mg PO DAILY Rx Instructions: 01/12/21 Currently receives 105 mg of Liquid Methadone.BAVERO cgc 07/16/21 Dose changed to 60 mgs liquid daily. mk acetaminophen [Tylenol] 325 mg capsule 500 mg PO PRN PRN Discharge Instructions Instructions: Lyme disease Additional Instructions: You were seen in the emergency department for your tick bite, we gave you 200 mg of doxycycline which should prevent any incidence of Lyme disease, please monitor your condition carefully and return for any severe body aches or fever palpitations or lethargy. Referrals: John Arndt DO [Primary Care Provider, Medicine] Discharge Data Discharge Date/Time-TO BE ENTERED AT DEPARTURE: 05/27/25 12:00 HPI General Date/Time Provider Initiated Documentation: 05/27/25 11:25. HPI Narrative: 35 year-old male presents to ED today by POV/ambulating with a chief complaint of tick bite just above his belly button with onset yesterday. Quality described as mildly tender at the bite site with some redness, no radiation to fever, body aches, chest pain, palpitations, fatigue, spreading rash at bite site. Severity is described as mild. Palliating factors include nothing specific attempted. Provoking factors include nothing specific. Events leading up to the incident/Associated Symptoms: Patient is unsure what species of tick, not likely attached for >24 hours. Patient not anticoagulated. Related Data Home Medications ?Medication ?Instructions ?Recorded ?Confirmed methadone 10 mg/5 mL oral solution 150 mg PO DAILY 02/11/22 05/27/25 acetaminophen 325 mg capsule 500 mg PO PRN PRN 03/18/24 05/27/25 (Tylenol) Allergies Allergy/AdvReac Type Severity Reaction Status Date / Time clarithromycin (From Biaxin) Allergy Severe Other (See Verified 05/27/25 11:25 Comment) General Stated Complaint: InsectBite YAMILETH: 4 Review of Systems All systems reviewed & are unremarkable except as noted in HPI and below Exam Narrative Exam Narrative: GENERAL APPEARANCE: Well-nourished, non-toxic, awake and alert, atraumatic, no acute distress. SKIN: Warm, pink, dry, small 0.5 cm erythematous skin at bite site just superior to the umbilicus without erythema migrans HEAD: Normocephalic, atraumatic, normal hair distribution for gender/age. EYES: Normal conjunctiva, no exudates on lids/lashes. ENT: Nares patent, no circumoral cyanosis, no facial swelling NECK: Supple, trachea midline, painless cervical ROM. LUNGS/CHEST: Non-labored respirations, normal A/P diameter, symmetrical expansion, no chest wall deformity HEART (CV/PV): No peripheral edema, no JVD. ABDOMEN: Soft, non-distended, no guarding. MSK: Normal ROM, no swelling/deformity to bilateral UEs or LEs, moving all extremities without weakness, no cyanosis, spine midline without tenderness, normal curvature. NEURO: Mental Status AAOx4 - alert to person, place, time, events No facial droop, no forehead involvement. Motor: No focal weakness - strength 5/5 in bilateral UEs and LEs, proximal and distal, symmetric. Sensory: sensation intact to light touch globally. Gait normal: patient ambulated without ataxia into ED room. PSYCH: euthymic, cooperative, pleasant, appropriate speech Course Vital Signs Vital signs: Vital Signs Temperature 36.8 C 05/27/25 11:21 Pulse 60 05/27/25 11:21 Respiratory Rate 18 05/27/25 11:21 Blood Pressure 166/62 H 05/27/25 11:21 Temperature 36.8 C 05/27/25 11:21 Temperature Source Oral 05/27/25 11:21 Pulse 60 05/27/25 11:21 Respiratory Rate 18 05/27/25 11:21 Blood Pressure 166/62 H 05/27/25 11:21 Oxygen Delivery Method Room Air 05/27/25 11:21 Oxygen Flow Rate 0 05/27/25 11:21 Medical Decision Making This dictation utilizes [id number] dictation software and may contain unedited grammatical errors. 35 year-old male presents to ED today by POV/ambulating with a chief complaint of tick bite just above his belly button with onset yesterday. Quality described as mildly tender at the bite site with some redness, no radiation to fever, body aches, chest pain, palpitations, fatigue, spreading rash at bite site. Severity is described as mild. Palliating factors include nothing specific attempted. Provoking factors include nothing specific. Events leading up to the incident/Associated Symptoms: Patient is unsure what species of tick, not likely attached for >24 hours. Patients' medical history: Noncontributory. Family and social history: Noncontributory. Pertinent exam findings / vital signs include small 0.5 cm erythematous skin at bite site just superior to the umbilicus without erythema migrans. Differential / pathologies of concern include tick bite. Diagnostic studies of: - None. Interventions of: - 200 mg prophylactic doxycycline. ED Course/Assessment/Plan: 35-year-old male presents with a tick bite, within 72 hours reasonable for doxycycline prophylaxis, no signs of erythema migrans at this time, counseled him on return criteria for any profound fatigue or body aches or fever, he could also seek a tick and Lyme test through outpatient provider if he continues to have symptoms. Findings not consistent with erythema migrans. Disposition of tick bite. Patient verbalized understanding of the plan and return to ED criteria and engaged in shared decision making. Medical Records Medical records reviewed: Yes I reviewed the patient's medical records. Quality:SDOH Health Related Social Needs: Health related social needs risk of homeless daily activities education PFSH All Active Problems (Updated 05/27/25 @ 11:51 by TRINI Berry) Tick bite (Acute) Hepatitis C antibody positive in blood (Acute) Exposure to trichomonas (Acute) PTSD (post-traumatic stress disorder) (Acute) Fracture of nasal bone (Acute) Laceration of eyebrow, right (Acute) Contusion of right orbit (Acute) Tobacco dependence (Chronic) Opiate dependence (Chronic) BAART since 07/22/15 Depression (Chronic) Medical History (Updated 05/27/25 @ 11:51 by TRINI Berry) Traumatic amputation of fingertip Surgical History Tonsillectomy Family History Father Diabetes Substance abuse Hypertension Mother No problems noted. Maternal Grandmother Stroke Paternal Grandfather Diabetes Arthritis Hypertension Social History Smoking/Tobacco Use Status: Current every day Tobacco Type: cigarettes Quit status: not considering quitting Second Hand Exposure: Yes Smoking risk assessment performed?: Yes Alcohol Intake: current Alcohol Intake frequency: a few times a month Alcohol type: beer Drug use: Socially Substance use type: former substance user and marijuana Adopted: No Foster care: Yes Household members: family Housing: apartment What type of physical activity do you participate in: walking, bicycling and other Details: KAYAK Frequency: 3-4 times per week Seatbelt use: sometimes Helmet use: Yes Drive intox or ride w/intox 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 Working smoke detector in home: Yes Fire extinguisher in home: Yes Carbon monox detector in home: Yes Firearms in home: No Do you feel safe at home: Yes Do you feel safe in your relationship?: Yes Victim of physical abuse: No Victim of emotional abuse: No Victim of sexual abuse: No PAWSS Have you Been Recently Intoxicated or Drunk Within the Last 30 days?: No Have you Ever Experienced Previous Episodes of Alcohol Withdrawal?: No Have you ever Experienced Withdrawal Seizures?: No Have you ever Experienced Delirium Tremens(DT)s?: No Have you ever undergone Alcohol Rehabilitation Treatment (i.e, inpt ot outpatient treatment programs)?: No Have you ever Experienced Blackouts?: No Have you ever Combined Alcohol with other Downers within the last 90 days?: No Have you ever Combined Alcohol with any other Substance of Abuse during the last 90 days?: No Positive Blood Alcohol level on Presentation? [PCS.BAL]: No Evidence of Increased Autonomic Activity (i.e. HR>120, tremor, sweating, agitation, nausea)?: No Result: 0
[2025-05-27] MEDS: Doxycycline Hyclate 100 MG CAP 200 MG PO (11:49)
== END 2025-05-27 12:00 | disposition home or self-care (01) ==
LOC: ER 12:01
PROVIDERS: Emergency Provider Physician Assistant; PCP Family Medicine
DX: S30.861A Insect bite (nonvenomous) of abdominal wall, initial encounter (principal); W57.XXXA Bitten or stung by nonvenomous insect and other nonvenomous arthropods, initial encounter
CPT/HCPCS: 99283 ×2